=== PATIENT | female | born 1990 | race Caucasian/White ===

== ENCOUNTER 2018-10-20 19:11 | Emergency (ER) | payer SELFPAY ==
[~2018-10-20] VITALS: Ht 172.7 cm; Wt 66.4 kg
[~2018-10-20 19:11] MED LIST: CIPR500T4 PO; IBUP-1542 PO; ONDA8TAB14 PO
[2018-10-20 19:20] VITALS: Ht 172.7 cm; Wt 66.4 kg
[2018-10-20] MEDS ORDERED: SODIUM CHLORIDE 0.9% 1L BAG IV* STA (20:44)
[2018-10-20] MEDS ORDERED: KETOROLAC 30 MG INJ IV STA (21:06)
[2018-10-20] MEDS ORDERED: ACETAMINOPHEN 325 MG TAB PO ONE (21:30)
[2018-10-20] MEDS ORDERED: POTASSIUM CHLORIDE (SR) 20 MEQ TAB PO STA (22:29)
[2018-10-20] MEDS ORDERED: CEFTRIAXONE 1 GM/50 ML (PMX) 50 ML IVPB ONE (22:30)
[2018-10-21 01:54] VITALS: BP 109/55; PULSE 97; RESP 17
== END 2018-10-21 01:56 | disposition home or self-care (01) ==
LOC: FTE 19:11
DX: N12 Tubulo-interstitial nephritis, not specified as acute or chronic (principal)
CPT/HCPCS: 36415; 80053; 81001; 81025; 83605; 84484; 85025; 85610; 85730; 87040; 87086; 96374; 96375; 99284; J0696; J1885; J7030

== ENCOUNTER 2018-12-16 16:13 | Emergency (ER) | payer BC, MEDICAID ==
[~2018-12-16] VITALS: Ht 157.5 cm; Wt 75.0 kg
[~2018-12-16 16:13] MED LIST changes: +CEPH-443 PO; +MECL12.574 PO
[2018-12-16 16:15] VITALS: RESP 18; Ht 157.5 cm; Wt 75.0 kg
[2018-12-16] MEDS ORDERED: ONDANSETRON 4 MG INJ IV STA (17:29)
[2018-12-16] MEDS ORDERED: MECLIZINE 12.5 MG TAB PO ONE (17:30)
[2018-12-16] MEDS ORDERED: SOD CHLORIDE 0.9% 1,000 ML IV ONE (17:30)
[2018-12-16] MEDS ORDERED: CEFTRIAXONE 1 GM/50 ML (PMX) 50 ML IVPB ONE (19:00)
[2018-12-16 19:51] VITALS: BP 101/59; PULSE 64
== END 2018-12-16 19:51 | disposition home or self-care (01) ==
LOC: FTE 16:13
DX: R42 Dizziness and giddiness (principal); N39.0 Urinary tract infection, site not specified
CPT/HCPCS: 80053; 81001; 81025; 84484; 85025; 93005; 96374; 96375; 99284; J0696; J2405; J7030; Z7610